=== PATIENT | female | born 1985 | race African-American/Black ===

== ENCOUNTER 2019-09-13 17:48 | Emergency (ER) | payer BC, SELFPAY ==
--- NOTE | ~2019-09-13 | XR_ITS ---
EXAMINATION: XR chest 2V DATE: 09/13/2019 18:41 INDICATION: Shortness of breath and cough. TECHNIQUE: Frontal and lateral views of the chest were obtained. COMPARISON: None. FINDINGS: The chest demonstrates clear lungs without pneumonia, pleural effusion, or pneumothorax. Th e heart size is normal. IMPRESSION: 1. No acute cardiopulmonary disease. Reviewed, dictated and finalized at location A.
[2019-09-13 17:55] VITALS: BP 149/95; PULSE 100; RESP 16; TEMP 36.4; O2SAT 100
--- NOTE | 2019-09-13 18:11 | ECG_ITS ---
Measurements Intervals [place] Rate: 93 P: 134 [place]: 123 QRS: 122 QRSD: 94 T: -21 QT: 340 QTc: 423 Interpretive Statements SINUS OR ECTOPIC ATRIAL RHYTHM ARM LEADS REVERSED BORDERLINE ST-T WAVE ABNORMALITY- INFERIOR LEADS BORDERLINE ECG Electronically Signed On 09-14-2019 7:46:40 CDT by Florentin Myers D.O.
--- NOTE | 2019-09-13 18:17 | ED.DIZZY ---
HPI - Dizziness General Chief Complaint: Dizziness Stated Complaint: dizzy, sob Time Seen by Provider: 09/13/19 18:12 Source: patient and RN notes reviewed Mode of arrival: ambulatory Limitations: no limitations History of Present Illness HPI Narrative: A 33 y/o female presents to the ED with SOB for the past 2 weeks SOB for the past 2 weeks lately has been constant worse with exertion Related Data Home Medications Medication Instructions Recorded Confirmed lorazepam [Ativan] 0.5 mg PO BID PRN 09/13/19 spironolactone 100 mg PO DAILY 09/13/19 Allergies Allergy/AdvReac Type Severity Reaction Status Date / Time doxycycline Allergy Unknown Verified 09/13/19 18:08 fluconazole Allergy Unknown Verified 09/13/19 18:08 [facility] Social History Social History Gender identity (if verbalized by the patient): Female Course Vital Signs Vital signs: Vital Signs Temperature 97.6 F 09/13/19 17:55 Pulse Rate 100 09/13/19 17:55 Respiratory Rate 16 09/13/19 17:55 Blood Pressure 149/95 H 09/13/19 17:55 Pulse Oximetry 100 09/13/19 17:55 Temperature 97.6 F 09/13/19 17:55 Pulse Rate 100 09/13/19 17:55 Respiratory Rate 16 09/13/19 17:55 Blood Pressure 149/95 H 09/13/19 17:55 Pulse Oximetry 100 09/13/19 17:55 Discharge Plan Discharge Prescriptions: No Action spironolactone 100 mg tablet 100 mg PO DAILY RF: 0 lorazepam [Ativan] 0.5 mg Tablet 0.5 mg PO BID PRN (Reason: Anxiety) RF: 0
--- NOTE | 2019-09-13 18:24 | ED.SOB ---
HPI - SOB/Dyspnea General Chief Complaint: Dizziness Stated Complaint: dizzy, sob Time Seen by Provider: 09/13/19 18:12 Source: patient and RN notes reviewed Mode of arrival: ambulatory Limitations: no limitations History of Present Illness HPI Narrative: A 33 y/o female presents to the ED with worsening SOB for the past 2 weeks. She states that her SOB was intermittent but recently has become constant and more severe. She reports associated nasal congestion, intermittent upper back pain, occasional stabbing CP, and a chronic cough. She notes that exertion aggravates her SOB. He also notes that she has been seen at a and was placed on a Z-pack. She denies any fevers, N/V/D wheezes, leg pain, or leg edema. MD elicited complaint: shortness of breath Onset (ago): week(s) (2) Timing: progressively worsening Exacerbating factors: exertion Associated symptoms: chest pain (occasional stabbing), cough and other (nasal congestion and intermittent upper back pain) Related Data Home oxygen amount: none Home Medications Medication Instructions Recorded Confirmed lorazepam [Ativan] 0.5 mg PO BID PRN 09/13/19 spironolactone 100 mg PO DAILY 09/13/19 Allergies Allergy/AdvReac Type Severity Reaction Status Date / Time doxycycline Allergy Unknown Verified 09/13/19 18:08 fluconazole Allergy Unknown Verified 09/13/19 18:08 Review of Systems Review of Systems: All systems reviewed & are unremarkable except as noted in HPI and below Constitutional: Constitutional: Denies fever(s) ENT: Reports nasal congestion Cardiovascular: Cardiovascular: Reports chest pain (occasional stabbing) and Denies leg edema Respiratory: Respiratory: Reports cough (chronic), Reports dyspnea and Denies wheezing Gastrointestinal: Gastrointestinal: Denies diarrhea, Denies nausea and Denies vomiting Musculoskeletal: Musculoskeletal: Reports back pain (intermittent upper) and Denies other (leg pain) [facility] Past Medical History Medical History Anxiety Bronchitis Hx: UTI (urinary tract infection) Laryngopharyngeal reflux Surgical History Surgical History History of tonsillectomy Social History Social History (Updated 09/13/19 @ 18:42 by [place] Ernst) Smoking packs per day: 0.25 Smoking cigarettes per day: 5.0 Smoking status: Current every day smoker Tobacco type: cigarettes Gender identity (if verbalized by the patient): Female Exam Const: General: healthy appearing and no acute distress Nutritional Appearance: well nourished HENMT: Mouth: Yes lip normal and Yes moist mucous membranes Eyes: Conjunctivae: conjunctivae normal Pupils: Equal, round and reactive pupils present Resp: Effort & Inspection: normal respiratory effort Auscultation: clear to auscultation bilaterally Cardio: Rate: regular rate Rhythm: regular rhythm Heart sounds: no murmurs GI: GI Palp: Yes Soft to palpation and No Tenderness to palpation present (GI) Auscultation: normal bowel sounds Back/Spine/Pelvis: Other: Full ROM. Skin: General skin exam: normal color, dry skin and other (warm and dry cracked skin on hands) Neuro: General: patient oriented x3 (alert) Speech: normal speech Extrem: General: full ROM Psych: Mental Status: mental status grossly normal Affect: normal affect Course Vital Signs Vital signs: Vital Signs Temperature 36.4 C 09/13/19 17:55 Pulse Rate 100 09/13/19 17:55 Respiratory Rate 16 09/13/19 17:55 Blood Pressure 149/95 H 09/13/19 17:55 Pulse Oximetry 100 09/13/19 17:55 Temperature 36.4 C 09/13/19 17:55 Pulse Rate 82 09/13/19 19:36 Respiratory Rate 18 09/13/19 19:36 Blood Pressure 138/90 09/13/19 19:36 Pulse Oximetry 100 09/13/19 19:36 MDM - SOB/Dyspnea Medical Records Attestation: I reviewed the patient's medical records. Lab Data Attestation: I reviewed the patient's lab results. Resu
[2019-09-13 18:39] LABS: Basophils Percent Auto 0.3 % (0.2-1.2); Eosinophils Percent Auto 0.4 % (0-4.4); Hematocrit 46.7 % (37.0-47.0); Hemoglobin 14.7 g/dL (12.0-15.0); Immature Granulocyte Absolute 0.04 K/mm3 (0.00-0.031); Immature Granulocyte Percent A 0.4 % (0-0.5); Lymphocytes Percent Auto 29.9 % (18.3-44.2); Mean Corpuscular HGB Conc 31.5 g/dl (32-36); Mean Corpuscular Hemoglobin 25.9 pg (26-34); Mean Corpuscular Volume 82.4 fl (80-100); Mean Platelet Volume 9.5 fl (7.4-10.4); Monocytes Percent Auto 8.9 % (2.6-8.5); Neutrophils Absolute Auto 6.6 K/mm3 (1.3-6.7); Neutrophils Percent Auto 60.1 % (45.5-73.1); Platelet Count Result 360 k/mm3 (150-375); Red Blood Count 5.67 M/mm3 (4.2-5.4); Red Cell Distribution Width 14.1 % (11.5-14.5)
[2019-09-13 18:50] LABS: Blood Urea Nitrogen 9 mg/dL (7-17); Carbon Dioxide 26 mmol/L (22-30); Chloride 102 mmol/L (98-107); Estimated CRCL calculation 89 ml/min; Estimated Glomerular Filt Rate > 60; Glucose 101 mg/dL (65-105); Potassium 3.4 mmol/L (3.4-5.0); Sodium 136 mmol/L (137-145)
[2019-09-13 18:53] LABS: D Dimer 0.27 ug/mL (<0.48)
[2019-09-13 19:36] VITALS: BP 138/90; PULSE 82; RESP 18; O2SAT 100
== END 2019-09-13 19:37 | disposition home or self-care (01) ==
PROVIDERS: Emergency Provider Emergency Medicine; PCP Family Medicine
DX: R06.02 Shortness of breath (principal); F41.9 Anxiety disorder, unspecified; Z87.440 Personal history of urinary (tract) infections; F17.210 Nicotine dependence, cigarettes, uncomplicated; R94.31 Abnormal electrocardiogram [ECG] [EKG]
CPT/HCPCS: 36415; 71046; 80048; 85025; 85380; 93005; 99283